=== PATIENT | female | born 1950 | race Caucasian/White ===

== ENCOUNTER 2024-04-20 08:23 | Day surgery (SDC) | payer OTHER ==
[~2024-04-20 08:23] MED LIST: ACET500; ASCO500 PO; B COMPLEX WITH1 EACH PO; BENADRYL25 M1; CALCIUM CIT 311 EAC7 PO; DILT180 PO; ENAL10 PO; MERIBIN5 MG PO; OMEP20ER PO; VIT D3-VIT K21 EACH PO; XARELTO20 MG PO
== END 2024-04-20 23:59 | disposition home or self-care (01) ==
LOC: MOI US 08:23
DX: C50.412 Malignant neoplasm of upper-outer quadrant of left female breast (principal); Z17.0 Estrogen receptor positive status [ER+]
CPT/HCPCS: 19285; 77065; A4648

== ENCOUNTER 2024-04-25 10:07 | Day surgery (SDC) | payer OTHER ==
[~2024-04-25] VITALS: Ht 165.1 cm; Wt 69.9 kg
[2024-04-25] VITALS (9 sets, daily range): BP systolic 161–194; BP diastolic 73–100
[2024-04-25] MEDS ORDERED: Lactated Ringer's 1,000 ML IV SCH (10:40)
[2024-04-25] MEDS ORDERED: CeFAZolin Sodium 2,000 MG in NS 100 ML IV SCH (10:40)
--- NOTE | 2024-04-25 10:59 | NUR ---
Ambulatory in Day SurgeryPre-Op teaching done. Pt verbalizes understanding. Patient confirms NPO status and agrees with scheduled surgery. Patient reports completing Chlorhexadine shower X2 prior to admission to hospital.History, Chart, Medications and Allergies reviewed before start of procedure.Patient States Post-Procedure ride home has been arranged.
[2024-04-25] MEDS ORDERED: propofoL 20 ML IV ONE (11:12)
[2024-04-25] MEDS ORDERED: FentaNYL Citrate 50 MCG/ML 2 ML Injection ONE (11:12)
[2024-04-25] MEDS ORDERED: Dexamethasone Sod Phos 10 MG/ML 1ML VIAL ONE (11:13)
[2024-04-25] MEDS ORDERED: Ondansetron HCl 2 MG / ML 2ML Vial ONE (11:13)
[2024-04-25] MEDS ORDERED: CeFAZolin Sodium 2,000 MG VIAL ONE (11:23)
[2024-04-25] MEDS ORDERED: Bupivacaine 0.5% HCl 5 MG/ML 30MLVIAL ONE (12:04)
[2024-04-25] MEDS ORDERED: HYDROmorphone HCl/Pf 1MG SYR ONE (13:02)
[2024-04-25] MEDS ORDERED: Phenylephrine HCl 100 MCG/ML-NS 10MLSYR (1MG/10ML) ONE (13:31)
[2024-04-25] MEDS ORDERED: HYDROcodone 5-APAP 325 TAB PO PRN (14:40)
--- NOTE | 2024-04-25 15:34 | NUR ---
Discharge instructions reviewed with patient. Patient verbalizes understanding. Copy given to patient to take home. Dressings c/d/i. Patient States Post-Procedure ride home has been arranged. Discharged via wheelchair to private car for ride home.
== END 2024-04-25 15:37 | disposition home or self-care (01) ==
LOC: ORSCMMR 10:07 → NM 10:07 → ORSCMMR 10:08 → NM 10:30
PROVIDERS: Surgery
PROC: 07B60ZX Excision of Left Axillary Lymphatic, Open Approach, Diagnostic (ICD-10-PCS; 2024-04-25)
PROC: 0HBU0ZZ Excision of Left Breast, Open Approach (ICD-10-PCS; principal; 2024-04-25 11:45)
DX: C50.412 Malignant neoplasm of upper-outer quadrant of left female breast (principal); D36.0 Benign neoplasm of lymph nodes; Z17.0 Estrogen receptor positive status [ER+]; Z17.21 Progesterone receptor positive status; Z17.32 Human epidermal growth factor receptor 2 negative status; I10 Essential (primary) hypertension; I48.91 Unspecified atrial fibrillation; K21.9 Gastro-esophageal reflux disease without esophagitis; Z79.899 Other long term (current) drug therapy; Z79.01 Long term (current) use of anticoagulants; Z86.73 Personal history of transient ischemic attack (TIA), and cerebral infarction without residual deficits
CPT/HCPCS: 38792; 76098; 88307; 88342; A9270; A9520; J0690; J1100; J1171; J2371; J2405; J2704; J3010; J7120

== ENCOUNTER 2024-12-27 07:59 | Day surgery (SDC) | payer OTHER ==
[2024-12-27] VITALS (20 sets, daily range): BP systolic 119–199; BP diastolic 62–119
[~2024-12-27] VITALS: Ht 165.1 cm; Wt 75.5 kg
[~2024-12-27 07:59] MED LIST changes: +ANASTROZOLE1 M7 PO
[2024-12-27] MEDS ORDERED: Benzocaine Oral Spray 0.5ML UD ONE (08:12)
--- NOTE | 2024-12-27 08:18 | NUR ---
Ambulatory in Day SurgeryPre-Op teaching done. Pt verbalizes understanding. History, Chart, Medications and Allergies reviewed before start of procedurePatient confirms NPO status and agrees with scheduled surgery. Patient States Post-Procedure ride home has been arranged.
--- NOTE | 2024-12-27 09:19 | NUR ---
12/27/24 0919 Nany Shepherd CONFIRMED AND REVIEWED H&P, MEDCICATIONS, ALLERGIES, MEDICAL HISTORY, RESPIRATORY HISTORY, VITAL SIGNS, 3-LEAD EKG, CONSENTS, AND PHYSICIAN ORDERS. PATIENT CONFIRMS NPO STATUS AND AGREES WITH SCHEDULED PROCEDURE. MONITOR INTACT WITH CONTINUOUS PULSE OXIMETRY, CAPNOGRAPHY, 3-LEAD EKG, INTERMITTENT BP. SUPPLEMENTAL O2 TO BE TITRATED THROUGHOUT PROCEDURE TO MAINTAIN O2 SATURATION ABOVE 90%. PATIENT DETERMINED TO BE ASA APPROPRIATE FOR PROPOFOL SEDATION PRIOR TO START OF PROCEDURE BY DR. CARTER MALLAMPATI CLASS 2 AIRWAY: COMPLETE VISUALIZATION OF THE UVULA.
--- NOTE | 2024-12-27 09:44 | NUR ---
Patient up to Ambulate independently. Gait steady. Discharge instructions reviewed with patient. Patient verbalizes understanding. Copy given to patient to take home. Patient States Post-Procedure ride home has been arranged. Discharged via wheelchair to private car for ride home. PT TOLERATING PO, REPORTS READY TO GO HOME.
== END 2024-12-27 09:44 | disposition home or self-care (01) ==
LOC: ORSCMMR 07:59 → ORD 09:00 → ORSCMMR 09:00
PROVIDERS: Internal Medicine Gastroenterology
PROC: 0DBK8ZX Excision of Ascending Colon, Via Natural or Artificial Opening Endoscopic, Diagnostic (ICD-10-PCS; principal; 2024-12-27 09:00)
PROC: 0DB48ZX Excision of Esophagogastric Junction, Via Natural or Artificial Opening Endoscopic, Diagnostic (ICD-10-PCS; principal; 2024-12-27 09:00)
DX: K22.70 Barrett's esophagus without dysplasia (principal); K44.9 Diaphragmatic hernia without obstruction or gangrene; R19.7 Diarrhea, unspecified; D12.2 Benign neoplasm of ascending colon; Z85.3 Personal history of malignant neoplasm of breast; I48.0 Paroxysmal atrial fibrillation; I10 Essential (primary) hypertension; Z79.01 Long term (current) use of anticoagulants; Z79.899 Other long term (current) drug therapy
CPT/HCPCS: 88305; A9270; J2704; J7120